=== PATIENT | male | born 1970 | race Caucasian/White ===

== ENCOUNTER 2016-07-04 09:39 | Emergency (ER) | payer BC ==
[2016-07-04 09:42] VITALS: BP 140/88
[2016-07-04] MEDS ORDERED: cefTRIAXone 2 GM Vial IVPUSH ONE (10:23)
[2016-07-04 10:26] LABS: CHLORIDE,CL 101 mEq/L (98-106); SODIUM,NA 136 mEq/L (136-145)
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
== END 2016-07-04 10:55 | disposition home or self-care (01) ==
LOC: CC.ED 09:39
DX: L03.115 Cellulitis of right lower limb (principal); I10 Essential (primary) hypertension; Z79.899 Other long term (current) drug therapy; Z98.890 Other specified postprocedural states
CPT/HCPCS: 36415; 80053; 85025; 86140; 87040; 96374; 99283; J0696; 87077; 87147; 87184; 87186

== ENCOUNTER 2016-07-06 08:18 | Inpatient (IN) | payer BC ==
[2016-07-06] MEDS ORDERED: cefTRIAXone 2 GM Vial IVPUSH SCH (09:00)
[2016-07-06] MEDS ORDERED: Enoxaparin 40 MG/0.4 ML Syringe SUBCUT SCH (09:00)
[2016-07-06] MEDS ORDERED: Ibuprofen 200 MG Tab PO PRN (09:28)
[2016-07-06] MEDS ORDERED: Temazepam 15 MG Cap PO PRN (09:28)
[2016-07-06] MEDS ORDERED: HYDROmorphone 1 MG/ML Syringe IVPUSH PRN (09:28)
[2016-07-06] MEDS ORDERED: Vancomycin 2 GM in Sodium Chloride 0.9% 500 ML IV SCH (10:00)
[2016-07-06] MEDS: Enoxaparin 40 MG/0.4 ML Syringe SUBCUT SCH (10:30)
[2016-07-06] MEDS: cefTRIAXone 2 GM Vial IVPUSH SCH (10:30)
[2016-07-06] MEDS: Lactated Ringers 1,000 ML IV SCH ×2 (10:31→22:29)
[2016-07-06] MEDS: Vancomycin 1.5 GM in Sodium Chloride 0.9% 500 ML IV SCH ×2 (11:17→20:18)
[2016-07-06] MEDS: Acetaminophen/HYDROcodone 325-5 MG Tab PO PRN (13:34)
[2016-07-07] MEDS: Lactated Ringers 1,000 ML IV SCH ×2 (06:30→16:42)
[2016-07-07 07:45] LABS: CHLORIDE,CL 99 mEq/L (98-106); SODIUM,NA 137 mEq/L (136-145)
[2016-07-07] MEDS: Lisinopril 10 MG Tab PO SCH (09:05)
[2016-07-07] MEDS: Enoxaparin 40 MG/0.4 ML Syringe SUBCUT SCH (09:05)
[2016-07-07] MEDS: cefTRIAXone 2 GM Vial IVPUSH SCH (09:07)
[2016-07-07] MEDS: Vancomycin 1.5 GM in Sodium Chloride 0.9% 500 ML IV SCH ×2 (09:18→20:12)
--- NOTE | 2016-07-07 09:32 | PN ---
DATE: 07/07/2016 S: Luis Salgado came in with severe cellulitis of his right lower extremity. Positive blood cultures with gram-positive cocci, very concerned this is strep or erysipelas type thing. O: EXTREMITIES: On examination, the leg is swollen, very erythematous. He has a couple of open ulcers in the bottom of his foot. The erythema goes up to the knee. NECK: Supple. Chest: Clear. Cardiac: Regular. ASSESSMENT: [id number] CELLULITIS, SEPSIS. P: Continue IV antibiotics. MOY/SAMIA /[id number]
[2016-07-07] MEDS: Acetaminophen 325 MG Tab PO PRN (17:22)
[2016-07-07] MEDS ORDERED: Sodium Chloride 0.9% 10 ML Syringe FLUSH PRN (18:46)
[2016-07-08] MEDS: Acetaminophen/HYDROcodone 325-5 MG Tab PO PRN (03:55)
[2016-07-08 07:37] LABS: CHLORIDE,CL 104 mEq/L (98-106); SODIUM,NA 139 mEq/L (136-145)
[2016-07-08] MEDS: Enoxaparin 40 MG/0.4 ML Syringe SUBCUT SCH (09:01)
[2016-07-08] MEDS: cefTRIAXone 2 GM Vial IVPUSH SCH (09:01)
[2016-07-08] MEDS: Lisinopril 10 MG Tab PO SCH (09:01)
[2016-07-08] MEDS: Vancomycin 1.5 GM in Sodium Chloride 0.9% 500 ML IV SCH (09:16)
[2016-07-08] MEDS: Vancomycin 2 GM in Sodium Chloride 0.9% 500 ML IV SCH ×2 (09:46→19:59)
[2016-07-08] MEDS: Acetaminophen 325 MG Tab PO PRN (12:30)
--- NOTE | 2016-07-08 14:43 | PN ---
DATE: 07/08/2016 Lusi Salgado is in with severe cellulitis, I believe erysipelas, his right lower extremity. Today, the erythema is better. He is starting to blister. C- reactive protein is down. I do not feel any pedal pulses on him. ASSESSMENT: [id number] CELLULITIS. P: Get him to PT. Start debridement. Continue IV antibiotics. MOY/SAMIA /[id number]
[2016-07-09] MEDS: Acetaminophen/HYDROcodone 325-5 MG Tab PO PRN ×2 (00:22→06:17)
[2016-07-09] MEDS: cefTRIAXone 2 GM Vial IVPUSH SCH (07:48)
[2016-07-09] MEDS: Enoxaparin 40 MG/0.4 ML Syringe SUBCUT SCH (07:48)
[2016-07-09] MEDS: Lisinopril 10 MG Tab PO SCH (07:48)
[2016-07-09 07:52] LABS: CHLORIDE,CL 105 mEq/L (98-106); SODIUM,NA 139 mEq/L (136-145)
[2016-07-09] MEDS: Vancomycin 2 GM in Sodium Chloride 0.9% 500 ML IV SCH (08:59)
[2016-07-09 12:45] VITALS: BP 153/92
--- NOTE | 2016-07-12 09:12 | DISCH ---
HOSPITAL COURSE: Luis Salgado came in with severe cellulitis of his right lower extremity. I started him on vancomycin. He had positive blood cultures 2, and we followed the leg closely, the erythema went down, he started to blister, we had PT see him. He has been afebrile. CRP has been dropping. Rest of the lab, outpatient. Positive blood cultures, his white count was 24.1, it is now 13.5, C-reactive proteins were elevated, it gone as high as 34, yesterday was 19.3. DISPOSITION: The patient now discharged to swing bed on same medications. DISCHARGE DIAGNOSIS: MODERATE TO SEVERE CELLULITIS, RIGHT LOWER EXTREMITY. MOY/SAMIA /[id number]
== END 2016-07-09 15:48 | disposition swing bed (61) | DRG 383 ==
LOC: CC.MS 08:18 → CC.FCMC 08:18 → CC.MS 09:22 → UNDOADMIN 09:22 → CC.MS 09:28
PROVIDERS: ADMIT Physician Assistant Medical; ATTEND General Practice
DX: L03.115 Cellulitis of right lower limb (principal); M79.89 Other specified soft tissue disorders; Z88.0 Allergy status to penicillin; Z79.899 Other long term (current) drug therapy
CPT/HCPCS: 36415; 80048; 80202; 83735; 85025; 86140; 97161-GP; A9270-GY; J0696; J1650; J3370; J7040; J7120

== ENCOUNTER 2016-07-09 15:51 | Inpatient (IN) | payer BC ==
[2016-07-09] MEDS ORDERED: Acetaminophen 325 MG Tab PO PRN (15:54)
[2016-07-09] MEDS ORDERED: Sodium Chloride 0.9% 10 ML Syringe FLUSH PRN (15:54)
[2016-07-09] MEDS ORDERED: Acetaminophen/HYDROcodone 325-5 MG Tab PO PRN (15:54)
[2016-07-09] MEDS ORDERED: Temazepam 15 MG Cap PO PRN (15:54)
[2016-07-09] MEDS ORDERED: HYDROmorphone 1 MG/ML Syringe IVPUSH PRN (15:54)
[2016-07-09] MEDS ORDERED: Ibuprofen 200 MG Tab PO PRN (15:54)
[2016-07-09] MEDS: Vancomycin 2 GM in Sodium Chloride 0.9% 500 ML IV SCH (20:02)
[2016-07-10] MEDS: Vancomycin 2 GM in Sodium Chloride 0.9% 500 ML IV SCH ×2 (07:54→19:45)
[2016-07-10] MEDS: cefTRIAXone 2 GM Vial IVPUSH SCH (07:54)
[2016-07-10] MEDS: Lisinopril 10 MG Tab PO SCH (07:54)
[2016-07-10] MEDS: Enoxaparin 40 MG/0.4 ML Syringe SUBCUT SCH (07:54)
[2016-07-11] MEDS: cefTRIAXone 2 GM Vial IVPUSH SCH (08:07)
[2016-07-11] MEDS: Enoxaparin 40 MG/0.4 ML Syringe SUBCUT SCH (08:07)
[2016-07-11] MEDS: Lisinopril 10 MG Tab PO SCH (08:07)
[2016-07-11] MEDS: Vancomycin 2 GM in Sodium Chloride 0.9% 500 ML IV SCH ×2 (08:43→19:24)
[2016-07-12 07:35] LABS: CHLORIDE,CL 104 mEq/L (98-106); SODIUM,NA 139 mEq/L (136-145)
[2016-07-12] MEDS: cefTRIAXone 2 GM Vial IVPUSH SCH (08:20)
[2016-07-12] MEDS: Vancomycin 2 GM in Sodium Chloride 0.9% 500 ML IV SCH ×2 (08:20→20:07)
[2016-07-12] MEDS: Lisinopril 10 MG Tab PO SCH (08:21)
[2016-07-12] MEDS: Enoxaparin 40 MG/0.4 ML Syringe SUBCUT SCH (08:21)
[2016-07-13] MEDS: cefTRIAXone 2 GM Vial IVPUSH SCH (08:29)
[2016-07-13] MEDS: Lisinopril 10 MG Tab PO SCH (08:32)
[2016-07-13] MEDS: Vancomycin 2 GM in Sodium Chloride 0.9% 500 ML IV SCH ×2 (08:32→19:58)
[2016-07-13] MEDS: Enoxaparin 40 MG/0.4 ML Syringe SUBCUT SCH (08:32)
[2016-07-14] MEDS: Enoxaparin 40 MG/0.4 ML Syringe SUBCUT SCH (07:27)
[2016-07-14] MEDS: cefTRIAXone 2 GM Vial IVPUSH SCH (07:30)
[2016-07-14 07:38] VITALS: BP 150/94
[2016-07-14] MEDS: Lisinopril 10 MG Tab PO SCH (07:48)
[2016-07-14] MEDS: Vancomycin 2 GM in Sodium Chloride 0.9% 500 ML IV SCH (09:04)
--- NOTE | 2016-07-15 07:21 | DISCH ---
HISTORY: Mr. Luis Salgado is a gentleman, who came in with severe strep cellulitis of his right lower extremity with positive blood cultures, started on IV vancomycin and Rocephin and outpatient physical therapy at the time of discharge. The leg was still little bit swollen, still other than this had some ulcerations, but it looked nice and clean. He demanded to go home. Labs here in the hospital, positive blood cultures, strep C, C-reactive protein is elevated, white count elevated and came down to normal. Panel-8 looked good. DISPOSITION: The patient is now discharged home on outpatient IV Rocephin for 5 days, Levaquin 500 daily for 7 days. Continue physical therapy outpatient. DISCHARGE MEDICATIONS: As above plus lisinopril 10 mg. DISCHARGE DIAGNOSIS: 1. MILD SEVERE STREP CELLULITIS. 2. HYPERTENSION. MOY/SAMIA /[id number]
== END 2016-07-14 12:00 | disposition home or self-care (01) | DRG 383 ==
LOC: CC.MS 15:51 → UNDOADMIN 15:51 → CC.MS 15:54
PROVIDERS: ADMIT Physician Assistant Medical; ATTEND General Practice
DX: L03.115 Cellulitis of right lower limb (principal); M79.89 Other specified soft tissue disorders; I10 Essential (primary) hypertension; Z88.0 Allergy status to penicillin; Z79.899 Other long term (current) drug therapy
CPT/HCPCS: 36415; 80048; 80202; 82565; 85025; 86140; 97597-GP; 97598-GP; A4216; A9270-GY; J0696; J1650; J3370; J7040

== ENCOUNTER 2021-07-29 10:59 | Emergency (ER) | payer BC ==
[2021-07-29] MEDS ORDERED: Aspirin 81 MG Tab.Chew PO STA (11:20)
[2021-07-29 11:48] LABS: CHLORIDE,CL 106 mEq/L (98-106); SODIUM,NA 140 mEq/L (136-145)
[2021-07-29 11:59] LABS: PTT,PARTIAL THROMBOPLSTIN TIME 25.1 SEC (23.2-32.3)
[2021-07-29] MEDS ORDERED: Iopamidol 755 Mg/ML 100 ML Bottle IVPUSH ONE (12:31)
[2021-07-29] MEDS ORDERED: Heparin Sodium 5,000 Units/ML Vial IVPUSH ONE (12:45)
[2021-07-29] MEDS ORDERED: Heparin Sodium/0.45% NaCl 500 ML IV SCH ×2 (13:00)
[2021-07-29 13:21] VITALS: BP 142/98; PULSE 105
== END 2021-07-29 13:32 ==
LOC: CC.ED 10:59 → SUPCPDRO 10:59 → CC.ED 13:32
DX: I26.99 Other pulmonary embolism without acute cor pulmonale (principal); R77.8 Other specified abnormalities of plasma proteins; I10 Essential (primary) hypertension; Z88.0 Allergy status to penicillin; Z88.1 Allergy status to other antibiotic agents; Z79.899 Other long term (current) drug therapy
CPT/HCPCS: 36415; 70450; 71045; 71275; 80053; 82550; 83605; 83615; 83690; 83880; 84484; 85025; 85379; 85610; 85730; 86140; 93005; 96365; 99284; 99285-25; A9270-GY; J1644; Q9967

== ENCOUNTER 2024-03-11 21:46 | Emergency (ER) | payer BC ==
[2024-03-11 21:50] VITALS: BP 139/78; PULSE 88
[2024-03-11 22:14] LABS: BASOPHILS ABSOLUTE AUTO 0.01 10^3/uL (0.00-0.50); BASOPHILS PERCENT AUTO 0.1 % (0-1); EOSINOPHILS ABSOLUTE AUTO 0.12 10^3/uL (0.00-1.50); EOSINOPHILS PERCENT AUTO 1.1 % (0-6); HEMATOCRIT 47.4 % (42.0-52.0); HEMOGLOBIN 15.6 g/dL (14.0-18.0); IMMATURE GRAN ABSOLUTE AUTO 0.02 10^3/uL (0.00-0.49); IMMATURE GRAN PERCENT AUTO 0.2 % (0.0-4.9); LYMPHOCYTES ABSOLUTE AUTO 1.75 10^3/uL (0.60-5.00); LYMPHOCYTES PERCENT AUTO 16.1 % (24-44); MEAN CORPUSCULAR HGB CONC 32.9 g/dL (32.0-36.0); MONOCYTES ABSOLUTE AUTO 0.65 10^3/uL (0.00-1.50); NEUTROPHILS PERCENT AUTO 76.5 % (41-71); PLATELET COUNT,PLT 190 10^3/uL (150-400); RED BLOOD CELL COUNT 5.04 x10^6/uL (4.50-6.00); WHITE BLOOD CELL COUNT,WBC 10.9 10^3/uL (4.0-11.0)
[2024-03-11 22:28] LABS: ALBUMIN 3.7 g/dL (3.4-5.0); BILIRUBIN TOTAL 0.7 mg/dL (0.0-1.0); CREATININE 1.2 mg/dL (0.7-1.3); EST CRCL DRUG DOSING (CG) 80.87 mL/min; MAGNESIUM 1.8 mg/dL (1.8-2.4)
[2024-03-11 22:33] LABS: INR 1.13 (0.92-1.18); PROTHROMBIN TIME 11.8 SEC (9.3-11.3); PTT,PARTIAL THROMBOPLSTIN TIME 29.2 SEC (20.0-30.0)
[2024-03-11] MEDS: Take Home: Cyclobenzaprine 10 MG Tab, 4 Tab Pack PO ONE (22:47)
== END 2024-03-11 22:54 | disposition home or self-care (01) ==
LOC: CC.ED 21:46
DX: R07.89 Other chest pain (principal); M62.830 Muscle spasm of back; I10 Essential (primary) hypertension; Z79.01 Long term (current) use of anticoagulants; Z79.899 Other long term (current) drug therapy; Z88.0 Allergy status to penicillin; Z88.1 Allergy status to other antibiotic agents
CPT/HCPCS: 36415; 71046; 80053; 83690; 83735; 84484; 85025; 85610; 85730; 86140; 93005; 93010; 99284; 99285; A9270-GY

== ENCOUNTER 2024-11-07 13:34 | Emergency (ER) | payer BC ==
[2024-11-07] MEDS: Ketorolac 30 MG/ML SDV IVPUSH ONE (14:10)
[2024-11-07 14:20] LABS: BASOPHILS ABSOLUTE AUTO 0.01 10^3/uL (0.00-0.50); BASOPHILS PERCENT AUTO 0.1 % (0-1); EOSINOPHILS ABSOLUTE AUTO 0.06 10^3/uL (0.00-1.50); EOSINOPHILS PERCENT AUTO 0.6 % (0-6); IMMATURE GRAN ABSOLUTE AUTO 0.02 10^3/uL (0.00-0.49); IMMATURE GRAN PERCENT AUTO 0.2 % (0.0-4.9); LYMPHOCYTES ABSOLUTE AUTO 0.98 10^3/uL (0.60-5.00); LYMPHOCYTES PERCENT AUTO 10.0 % (24-44); MONOCYTES ABSOLUTE AUTO 0.51 10^3/uL (0.00-1.50); MONOCYTES PERCENT AUTO 5.2 % (0-10); NEUTROPHILS ABSOLUTE AUTO 8.20 x10^3/uL (1.80-8.00); NEUTROPHILS PERCENT AUTO 83.9 % (41-71); PLATELET COUNT,PLT 177 10^3/uL (150-400); RED BLOOD CELL COUNT 4.81 x10^6/uL (4.50-6.00); WHITE BLOOD CELL COUNT,WBC 9.8 10^3/uL (4.0-11.0)
[2024-11-07 14:30] LABS: BLOOD UREA NITROGEN,BUN 18.0 mg/dL (7-18); CARBON DIOXIDE,CO2 26.0 mmol/L (21-32); CHLORIDE,CL 103.0 mEq/L (98-106); CREATININE 1.0 mg/dL (0.7-1.3); EST CRCL DRUG DOSING (CG) 95.9 mL/min; GLUCOSE RANDOM 122.0 mg/dL (75-99); POTASSIUM,K 4.3 mEq/L (3.5-5.0); SODIUM,NA 139.0 mEq/L (136-145)
[2024-11-07 14:43] LABS: ALANINE AMINOTRANSFERASE,ALT 30.0 U/L (12-78); ASPARTATE AMNIOTRANSFERASE,AST 16.0 U/L (15-37); BILIRUBIN TOTAL 0.6 mg/dL (0.0-1.0); PROTEIN TOTAL,TP 7.9 g/dL (6.4-8.2)
[2024-11-07 14:45] VITALS: BP 133/80; PULSE 76
[2024-11-07 14:46] LABS: ESTIMATED GFR 88.0 mL/min (>=60)
[2024-11-07 15:23] LABS: APPEARANCE,URINE CLEAR (CLEAR); GLUCOSE,URINE NEGATIVE (NEGATIVE); OCCULT BLOOD,URINE NEGATIVE (NEGATIVE)
== END 2024-11-07 16:41 | disposition home or self-care (01) ==
LOC: CC.ED 13:34
DX: M54.50 Low back pain, unspecified (principal); I10 Essential (primary) hypertension; Z88.0 Allergy status to penicillin; Z88.1 Allergy status to other antibiotic agents; Z79.899 Other long term (current) drug therapy
CPT/HCPCS: 36415; 74176; 80053; 81003; 83735; 85025; 96361; 96374; 99283; 99284-25; A9270-GY; J1885; J7030